=== PATIENT | male | born 1995 | race Caucasian/White ===

== ENCOUNTER 2021-10-12 09:55 | Emergency (ER) | payer OTHER ==
[2021-10-12 10:12] VITALS: BP 126/81
--- NOTE | 2021-10-12 10:20 | ED Physician Documentation ---
PD HPI SKIN - Stated complaint Stated Complaint: LUMP ON LT LEG - Chief complaint Chief Complaint: Wound - History obtained from History obtained from: Patient - History of Present Illness Timing - onset: How many weeks ago (1) Timing - duration: Weeks (1) Timing - details: Gradual onset, Still present Location: LLE (left thigh, and also new small one left shoulder.) Quality / character: Painful, Discolored, Draining (mild at times, just drop or so.) Associated symptoms: No: Fever, Myalgias, N/V/D Similar symptoms before: Has not had sx before Recently seen: Not recently seen Review of Systems Constitutional: denies: Fever, Chills PD PAST MEDICAL HISTORY - Past Medical History Past Medical History: No - Past Surgical History Past Surgical History: No - Present Medications Home Medications: Ambulatory Orders Medication Instructions Recorded Confirmed Doxycycline Hyclate 100 mg PO BID 7 Days #14 cap 10/12/21 Mupirocin 2% Oint [Bactroban 2% 1 applic TOP TID #15 gm 10/12/21 Oint] - Allergies Allergies/Adverse Reactions: Allergies Allergy/AdvReac Type Severity Reaction Status Date / Time No Known Drug Allergies Allergy Verified 10/12/21 10:12 - Social History Does the pt smoke?: No Smoking Status: Never smoker Does the pt drink ETOH?: Yes Does the pt have substance abuse?: No - Immunizations Immunizations are current?: Yes PD ED PE NORMAL - Vitals Vital signs reviewed: Yes - General General: Alert and oriented X 3, No acute distress, Well developed/nourished - Derm Derm: Normal color, Warm and dry, Other (left thigh with tender, red, demarcated nonfluctuant subcut lump with small skin ulcer point over it about 2 cm size c/w abscess. minimal similar left shoulder.) Departure - Departure Disposition: 01 Home, Self Care Clinical Impression: Skin abscess Qualifiers: Site of cutaneous abscess: extremity Site of cutaneous abscess of extremity: lower extremity Laterality: left Qualified Code(s): L02.416 - Cutaneous abscess of left lower limb Condition: Stable Record reviewed to determine appropriate education?: Yes Instructions: ED Staph Infec Abx Tx Only Follow-Up: DUSTIN Canseco [Provider Group] Prescriptions: Mupirocin 2% Oint [Bactroban 2% Oint] 1 applic TOP TID #15 gm Doxycycline Hyclate 100 mg PO BID 7 Days #14 cap Comments: This looks likely to be a bacterial infection such as a staph infection. It can satellite at times just with contamination from the hand after touching the area. I would have you continue regular showers and bathing. In particular cleanse the wound areas twice daily with soap and water and then apply mupirocin antibiotic ointment for the next 5 or 6 days. Doxycycline antibiotic orally twice daily for 5 to 7 days until this seems well resolved. The redness swelling and tenderness should resolve with treatment. A small lump feeling in the area of some inflammatory tissue may take the 2 or 3 weeks to resolve. Recheck if not improving well over the next several days and if more lesions develop or you develop a general illness. I sent your prescriptions to [facility] pharmacy in [place]. Discharge Date/Time: 10/12/21 10:55
[2021-10-12] MEDS ORDERED: MUPIROCIN 2% OINT 1 GM TOP STA (10:38)
[2021-10-12] MEDS ORDERED: DOXYCYCLINE 100 MG TABLET PO STA (10:38)
== END 2021-10-12 10:55 | disposition home or self-care (01) ==
LOC: ED 09:55
DX: L02.416 Cutaneous abscess of left lower limb (principal)
CPT/HCPCS: 99282; A9270

== ENCOUNTER 2021-10-13 18:07 | Emergency (ER) | payer OTHER ==
[2021-10-13] MEDS ORDERED: LIDOCAINE 1%-EPI 1:100000 20 ML MDV SUBQ STA (18:15)
--- NOTE | 2021-10-13 18:20 | ED Physician Documentation ---
PD HPI SKIN - Stated complaint Stated Complaint: L LEG INFECTION - Chief complaint Chief Complaint: Wound - History obtained from History obtained from: Patient (Seen here yesterday for abscesses on the left shoulder and above the left knee. He has been taking antibiotics but the pain has worsened. No systemic symptoms.) Review of Systems Constitutional: reports: Reviewed and negative Eyes: reports: Reviewed and negative Ears: reports: Reviewed and negative Cardiac: reports: Reviewed and negative PD PAST MEDICAL HISTORY - Past Surgical History Past Surgical History: No - Present Medications Home Medications: Ambulatory Orders Medication Instructions Recorded Confirmed Doxycycline Hyclate 100 mg PO BID 7 Days #14 cap 10/12/21 Mupirocin 2% Oint [Bactroban 2% 1 applic TOP TID #15 gm 10/12/21 Oint] - Allergies Allergies/Adverse Reactions: Allergies Allergy/AdvReac Type Severity Reaction Status Date / Time No Known Drug Allergies Allergy Verified 10/13/21 18:10 - Social History Does the pt smoke?: No Smoking Status: Never smoker Does the pt drink ETOH?: Yes Does the pt have substance abuse?: No - Immunizations Immunizations are current?: Yes PD ED PE NORMAL - Vitals Vital signs reviewed: Yes - General General: Alert and oriented X 3, No acute distress - Extremities Extremities: Other (Small pointed abscess over the upper left deltoid, larger pointed abscess with some spontaneous drainage superolateral to the left knee.) - Neuro Neuro: Alert and oriented X 3, Normal speech Results - Vitals Vitals: Vital Signs - 24 hr 10/13/21 18:10 Temperature 36.5 C Heart Rate 88 Respiratory 16 Rate Blood Pressure 136/80 H O2 Saturation 98 Oxygen O2 Source Room air Procedures - Abscess I&D (location) L shoulder/knee Preparation: Other (The left shoulder and left knee were prepped with alcohol and locally infiltrated with lidocaine with epinephrine with good anesthesia. Stab incisions were made into both abscesses, both were deloculated and expressed. The knee abscess was cultured. He tolerated this very well.) Departure - Departure Disposition: 01 Home, Self Care Clinical Impression: Skin abscess Condition: Good Record reviewed to determine appropriate education?: Yes Instructions: ED Abscess IandD Comments: Continue the doxycycline antibiotic you are on. We are performing a wound culture, the results should be done in 48-72 hours. If antibiotic change is necessary we will call you. Return if worse in the meantime, especially if you develop increased pain, fevers, cannot keep down the medication. Otherwise follow-up with your physician in approximately 2-3 days.
[2021-10-13 18:32] VITALS: BP 136/80
== END 2021-10-13 18:55 | disposition home or self-care (01) ==
LOC: ED 18:07
DX: L02.414 Cutaneous abscess of left upper limb (principal); L02.416 Cutaneous abscess of left lower limb
CPT/HCPCS: 10061; 87070; 87181; 87205; 99282

== ENCOUNTER 2021-12-12 12:12 | Emergency (ER) | payer OTHER ==
[2021-12-12] MEDS ORDERED: cephALEXin 250 MG CAPSULE PO STA (13:46)
--- NOTE | 2021-12-12 13:53 | ED Physician Documentation ---
PD HPI SKIN - Stated complaint Stated Complaint: NOSE SWELLING - Chief complaint Chief Complaint: Wound - History obtained from History obtained from: Patient - Additional information Additional information: Patient is a 26-year-old male who noticed redness and swelling to the inner portion of his right nare that he was concerned was related to an ingrown hair. He did apply pressure and try to drain the swelling and reported initially had a small amount of purulent drainage. He reports having continued tenderness and pressure to the area. He tried to call the [facility] for an appointment but was not able to be seen for at least a week. He denies fever. He has had abscesses in the past that required I&D. He denies fever, headache, dental pain, chest pain. Review of Systems Constitutional: denies: Fever Cardiac: denies: Chest pain / pressure Respiratory: denies: Dyspnea GI: denies: Abdominal Pain Skin: reports: Lesions Musculoskeletal: denies: Neck pain, Back pain Neurologic: denies: Headache PD PAST MEDICAL HISTORY - Past Surgical History Past Surgical History: No - Present Medications Home Medications: Ambulatory Orders Medication Instructions Recorded Confirmed Doxycycline Hyclate 100 mg PO BID 7 Days #14 cap 10/12/21 Mupirocin 2% Oint [Bactroban 2% 1 applic TOP TID #15 gm 10/12/21 Oint] cephALEXin [Keflex] 500 mg PO Q6H #28 cap 12/12/21 - Allergies Allergies/Adverse Reactions: Allergies Allergy/AdvReac Type Severity Reaction Status Date / Time No Known Drug Allergies Allergy Verified 12/12/21 12:39 - Social History Does the pt smoke?: No Smoking Status: Never smoker Does the pt drink ETOH?: Yes Does the pt have substance abuse?: No - Immunizations Immunizations are current?: Yes - POLST Patient has POLST: No PD ED PE NORMAL - General General: Alert and oriented X 3, No acute distress, Well developed/nourished - HEENT HEENT: Atraumatic, PERRL, EOMI, Moist mucous membranes, Pharynx benign, Other (No facial swelling) - Neck Neck: Supple, no meningeal sign, No bony TTP - Cardiac Cardiac: RRR - Respiratory Respiratory: No respiratory distress - Derm Derm: Warm and dry - Neuro Neuro: Normal speech PD ED PE EXPANDED - HEENT HEENT Visual: 1 - tenderness (0.5 cm area of swelling with surrounding redness; no fluctuance) Results - Vitals Vitals: Vital Signs - 24 hr 12/12/21 12/12/21 12:36 14:35 Temperature 36.2 C L Heart Rate 66 76 Respiratory 16 15 Rate Blood Pressure 106/81 H 117/76 O2 Saturation 100 100 Oxygen O2 Source Room air PD MEDICAL DECISION MAKING - ED course ED course: Patient with small area of redness and swelling towards his right nare. At this time I do not palpate any fluctuance to suggest need for drainage. We will start patient on p.o. antibiotics for cellulitis. Discussed need for close follow-up as well as strict return precautions for any worsening symptoms. Departure - Departure Disposition: 01 Home, Self Care Clinical Impression: Facial cellulitis Condition: Stable Instructions: ED Cellulitis Facial Follow-Up: DUSTIN rosishahbaz Dim[facility] [Provider Group] Prescriptions: cephALEXin [Keflex] 500 mg PO Q6H #28 cap Comments: There is a small area of cellulitis near your right nose. I do not palpate an abscess or anything drainable at this time. I would place a warm compress on the site of the ingrown hair Several times a day in case the infection organizes into a collection that needs to drain. I started you on antibiotic called Keflex. I have sent the prescription to [facility] in [place]. Please make sure to complete the whole course of the antibiotic. Please return to the ER if you notice any worsening symptoms such as increased swelling, redness, fever or pain. Discharge Date/Time: 12/12/21 14:36
[2021-12-12 14:36] VITALS: BP 117/76
== END 2021-12-12 14:36 | disposition home or self-care (01) ==
LOC: ED 12:12
DX: J34.0 Abscess, furuncle and carbuncle of nose (principal)
CPT/HCPCS: 99282; 99284; A9270